=== PATIENT | male | born 2000 | race Caucasian/White ===

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

== ENCOUNTER → 2025-02-20 | Outpatient (CLI) | payer SELFPAY ==
[2025-02-20 19:55] LABS: HIV Nonreactive (Nonreactive); Syphilis Antibodies Nonreactive (Nonreactive)
== END | disposition home or self-care (01) ==
LOC: MFPLAB 15:23
PROVIDERS: PCP Pediatrics; Visit Provider Family Medicine
DX: Z11.3 Encounter for screening for infections with a predominantly sexual mode of transmission (principal)
CPT/HCPCS: 36415; 86695; 86696; 86703; 86780; 87491; 87591